=== PATIENT | female | born 1990 | race African-American/Black ===

== ENCOUNTER 2016-07-02 23:35 | Inpatient (IN) | payer MEDICARE, MEDICAID ==
[~2016-07-02] VITALS: Ht 180.3 cm; Wt 110.9 kg
[~2016-07-02 23:35] MED LIST: DOCU250C91 PO; PALI234D IM; PALI6 PO; SERT50TA12 PO; TRAZ-147 PO
[2016-07-03] MEDS ORDERED: HYD50 PO (00:08)
[2016-07-03] MEDS ORDERED: FAMO20 PO (00:08)
[2016-07-03] MEDS ORDERED: PROP20TA7 PO (00:08)
[2016-07-03] MEDS ORDERED: VENL-67 PO (00:08)
[2016-07-03] MEDS ORDERED: HYDR25TA PO (00:08)
[2016-07-03 00:15] LABS: ANION GAP 11 mmol/L (8-16); CALCIUM, TOTAL 9.5 mg/dL (8.8-10.5); CARBON DIOXIDE 26 mmol/L (22-29); CHLORIDE 100 mmol/L (98-107); CREATININE 0.77 mg/dL (0.60-1.30); GLOMERULAR FILTR. RATE CALC > 60 mL/min (>60); POTASSIUM 3.5 mmol/L (3.5-5.1); SODIUM SERUM 137 mmol/L (136-145); UREA NITROGEN, BLOOD 11 mg/dL (7-18)
[2016-07-03 00:20] LABS: ALANINE AMINOTRANSFERASE 17 U/L (12-78); ALBUMIN 3.4 g/dL (3.4-5.0); ASPARTATE AMINOTRANSFERASE 12 U/L (15-37); BILIRUBIN,TOTAL 0.3 mg/dL (0.1-1.0); TOTAL PROTEIN, SERUM 7.9 g/dL (6.4-8.2)
[2016-07-03 00:30] LABS: BASOPHILS # (AUTO) 0.12 K/uL (0.00-0.20); BASOPHILS % (AUTO) 1.1 % (0.0-2.0); EOSINOPHILS # (AUTO) 0.12 K/uL (0.00-0.70); EOSINOPHILS % (AUTO) 1.03 % (1.0-6.0); HEMATOCRIT 39.6 % (36-46); HEMOGLOBIN 13.3 g/dL (12.0-16.0); LYMPHOCYTES # (AUTO) 3.5 K/uL (1.0-4.8); LYMPHOCYTES % (AUTO) 31.3 % (22.0-44.0); MEAN CORPUSCULAR HEMOGLOBIN 27.7 pg (26.0-34.0); MEAN CORPUSCULAR HGB CONC 33.6 G/dL (31.0-37.0); MEAN CORPUSCULAR VOLUME 83 fL (80-100); MONOCYTES # (AUTO) 1.3 K/uL (0.1-1.0); MONOCYTES % (AUTO) 11.1 % (2.0-9.0); NEUTROPHILS # (AUTO) 6.3 K/uL (1.8-7.7); NEUTROPHILS % (AUTO) 55.5 % (40.0-70.0); PLATELET COUNT (AUTO) 293 K/uL (150-450); RED BLOOD CELL COUNT(AUTO) 4.79 MIL/uL (4.00-5.20); RED CELL DISTRIBUTION WIDTH 13.8 % (11.5-14.5); WHITE BLOOD COUNT (AUTO) 11.3 K/uL (4.5-11.0)
[2016-07-03] MEDS ORDERED: LORazepam 2 MG TABLET PO ONE (00:30)
[2016-07-03] MEDS ORDERED: QUEtiapine FUMARATE 100 MG TABLET PO ONE (00:30)
[2016-07-03 01:45] VITALS: BP 126/67
[2016-07-03] MEDS ORDERED: INFLUENZA VIRUS VACCINE QVS 2016-17 (3YR+)/PF 60 MCG/0.5 ML SYRINGE IM ONE (03:00)
[2016-07-03] MEDS ORDERED: BACITRACIN 28.4 GM OINTMENT TP PRN (09:45)
[2016-07-03] MEDS ORDERED: CloNIDine HCL 0.1 MG TABLET PO PRN (09:45)
[2016-07-03] MEDS ORDERED: MAGNESIUM HYDROXIDE SUSPENSION 30 ML UDCUP PO PRN (09:45)
[2016-07-03] MEDS ORDERED: LOPERAMIDE HCL 2 MG CAPSULE PO PRN (09:45)
[2016-07-03] MEDS ORDERED: BENZOCAINE/MENTHOL LOZENGE [8 LOZENGES/PACKET] MM PRN (09:45)
[2016-07-03] MEDS ORDERED: PETROLATUM,WHITE 71 GM JELLY TP PRN (09:45)
[2016-07-03] MEDS ORDERED: MAG HYDROX/AL HYDROX/SIMETH ES 30 ML SUSPENSION UDCUP PO PRN (09:45)
[2016-07-03] MEDS ORDERED: ALBUTEROL SULFATE HFA 90 MCG/PUFF 8 GM INHALER IH PRN (09:45)
[2016-07-03] MEDS ORDERED: ACETAMINOPHEN 325 MG TABLET PO PRN (09:45)
[2016-07-03] MEDS: SERTRALINE HCL 50 MG TABLET PO SCH (12:32)
[2016-07-03] MEDS: LORazepam 2 MG TABLET PO PRN (15:23)
[2016-07-03] MEDS: QUEtiapine FUMARATE 100 MG TABLET PO PRN (17:41)
[2016-07-03] MEDS: TraZODone HCL 100 MG TABLET PO SCH (20:22)
[2016-07-04 05:03] VITALS: BP 130/85
[2016-07-04 08:05] VITALS: BP 142/95
[2016-07-04] MEDS: SERTRALINE HCL 50 MG TABLET PO SCH (09:06)
[2016-07-04] MEDS: PALIPERIDONE PALMITATE 234 MG/1.5 ML SYRINGE IM SCH (09:11)
[2016-07-04 17:22] VITALS: BP 126/89
[2016-07-04] MEDS: LORazepam 2 MG TABLET PO PRN (18:27)
[2016-07-04] MEDS: TraZODone HCL 100 MG TABLET PO SCH (20:16)
[2016-07-05 08:00] VITALS: BP 129/93
[2016-07-05] MEDS: SERTRALINE HCL 50 MG TABLET PO SCH (08:51)
[2016-07-05 16:59] VITALS: BP 126/95
[2016-07-05] MEDS: TraZODone HCL 100 MG TABLET PO SCH (20:26)
[2016-07-06 06:20] VITALS: BP 128/83
[2016-07-06] MEDS: QUEtiapine FUMARATE 100 MG TABLET PO PRN (06:24)
[2016-07-06] MEDS: SERTRALINE HCL 50 MG TABLET PO SCH (08:19)
[2016-07-06 09:03] VITALS: BP 121/88
[2016-07-06 17:05] VITALS: BP 126/74
[2016-07-06] MEDS: TraZODone HCL 100 MG TABLET PO SCH (20:56)
[2016-07-07 08:00] VITALS: BP 130/90
[2016-07-07] MEDS: SERTRALINE HCL 50 MG TABLET PO SCH (08:38)
[2016-07-07 16:23] VITALS: BP 120/71
[2016-07-07] MEDS: TraZODone HCL 150 MG TABLET PO SCH (20:29)
[2016-07-08 02:07] VITALS: BP 135/92
[2016-07-08] MEDS: QUEtiapine FUMARATE 100 MG TABLET PO PRN (02:12)
[2016-07-08] MEDS: LORazepam 2 MG TABLET PO PRN (02:12)
[2016-07-08 08:00] VITALS: BP 107/64
[2016-07-08] MEDS: SERTRALINE HCL 50 MG TABLET PO SCH (08:26)
[2016-07-08 16:30] VITALS: BP 132/90
[2016-07-08] MEDS: TraZODone HCL 150 MG TABLET PO SCH (20:50)
[2016-07-09] MEDS: SERTRALINE HCL 50 MG TABLET PO SCH (08:04)
[2016-07-09 08:35] VITALS: BP 116/67
[2016-07-09 17:11] VITALS: BP 123/73
[2016-07-09] MEDS: TraZODone HCL 150 MG TABLET PO SCH (20:07)
[2016-07-10] MEDS: SERTRALINE HCL 50 MG TABLET PO SCH (08:27)
[2016-07-10 09:53] VITALS: BP 137/90
[2016-07-10 16:00] VITALS: BP 146/96
[2016-07-10] MEDS: TraZODone HCL 150 MG TABLET PO SCH (20:49)
[2016-07-11 04:15] VITALS: BP 121/71
[2016-07-11] MEDS: QUEtiapine FUMARATE 100 MG TABLET PO PRN (04:16)
[2016-07-11 08:00] VITALS: BP 103/57
[2016-07-11] MEDS: SERTRALINE HCL 50 MG TABLET PO SCH (08:31)
[2016-07-11 16:23] VITALS: BP 124/78
[2016-07-11] MEDS: TraZODone HCL 150 MG TABLET PO SCH (20:11)
[2016-07-12 06:35] VITALS: BP 118/78
[2016-07-12 08:00] VITALS: BP 121/91
[2016-07-12] MEDS: SERTRALINE HCL 50 MG TABLET PO SCH (08:40)
[2016-07-12 16:24] VITALS: BP 130/78
[2016-07-12] MEDS: TraZODone HCL 150 MG TABLET PO SCH (20:26)
[2016-07-13] MEDS: QUEtiapine FUMARATE 100 MG TABLET PO PRN (03:26)
[2016-07-13] MEDS: LORazepam 2 MG TABLET PO PRN (03:26)
[2016-07-13 03:30] VITALS: BP 121/93
[2016-07-13] MEDS: SERTRALINE HCL 50 MG TABLET PO SCH (08:48)
[2016-07-13 10:48] VITALS: BP 103/64
[2016-07-13 17:19] VITALS: BP 132/95
[2016-07-13] MEDS: TraZODone HCL 150 MG TABLET PO SCH (20:28)
[2016-07-14 08:00] VITALS: BP 122/68
[2016-07-14] MEDS: SERTRALINE HCL 50 MG TABLET PO SCH (08:20)
[2016-07-14] MEDS: LORazepam 2 MG TABLET PO PRN (16:14)
[2016-07-14 18:38] VITALS: BP 117/81
[2016-07-14] MEDS: TraZODone HCL 150 MG TABLET PO SCH (20:50)
[2016-07-15 08:00] VITALS: BP 104/68
[2016-07-15] MEDS: SERTRALINE HCL 50 MG TABLET PO SCH (08:51)
[2016-07-15 13:46] VITALS: BP 124/84
[2016-07-15] MEDS: IBUPROFEN 600 MG TABLET PO PRN (13:46)
[2016-07-15 17:08] VITALS: BP 129/76
[2016-07-15] MEDS: TraZODone HCL 100 MG TABLET PO SCH (20:38)
[2016-07-16] MEDS: LORazepam 2 MG TABLET PO PRN (02:36)
[2016-07-16] MEDS: QUEtiapine FUMARATE 100 MG TABLET PO PRN (02:36)
[2016-07-16 04:58] VITALS: BP 118/79
[2016-07-16] MEDS: SERTRALINE HCL 50 MG TABLET PO SCH (08:48)
[2016-07-16 09:55] VITALS: BP 127/82
[2016-07-16 16:41] VITALS: BP 115/82
[2016-07-16] MEDS: TraZODone HCL 100 MG TABLET PO SCH (20:25)
[2016-07-17] MEDS: SERTRALINE HCL 50 MG TABLET PO SCH (08:58)
[2016-07-17 09:00] VITALS: BP 163/91
[2016-07-17] MEDS: LORazepam 2 MG TABLET PO PRN (12:28)
[2016-07-17 16:04] VITALS: BP 120/88
[2016-07-17] MEDS: TraZODone HCL 100 MG TABLET PO SCH (20:16)
[2016-07-18 08:00] VITALS: BP 102/60
[2016-07-18] MEDS: SERTRALINE HCL 50 MG TABLET PO SCH (08:27)
[2016-07-18 17:00] VITALS: BP 138/95
[2016-07-18] MEDS: TraZODone HCL 100 MG TABLET PO SCH (21:08)
[2016-07-19] MEDS: QUEtiapine FUMARATE 100 MG TABLET PO PRN (04:20)
[2016-07-19 04:22] VITALS: BP 117/88
[2016-07-19 08:00] VITALS: BP 107/66
[2016-07-19] MEDS: SERTRALINE HCL 50 MG TABLET PO SCH (08:13)
[2016-07-19] MEDS ORDERED: TUBERCULIN, PURIFIED PROTEIN DERIVATIVE 5 TU/0.1 ML SYG ID ONE (11:00)
[2016-07-19 17:01] VITALS: BP 120/86
[2016-07-19] MEDS: TraZODone HCL 100 MG TABLET PO SCH (20:06)
[2016-07-20] MEDS: LORazepam 2 MG TABLET PO PRN (04:12)
[2016-07-20] MEDS: QUEtiapine FUMARATE 100 MG TABLET PO PRN (04:12)
[2016-07-20 04:26] VITALS: BP 142/71
[2016-07-20 08:00] VITALS: BP 101/57
[2016-07-20] MEDS: SERTRALINE HCL 50 MG TABLET PO SCH (08:11)
[2016-07-20 16:28] VITALS: BP 119/51
[2016-07-20] MEDS: TraZODone HCL 100 MG TABLET PO SCH (20:28)
[2016-07-21] MEDS: SERTRALINE HCL 50 MG TABLET PO SCH (08:06)
[2016-07-21 08:37] VITALS: BP 128/76
[2016-07-21 16:34] VITALS: BP 125/86
[2016-07-21] MEDS: TraZODone HCL 100 MG TABLET PO SCH (20:29)
[2016-07-22] MEDS: SERTRALINE HCL 50 MG TABLET PO SCH (08:43)
[2016-07-22 10:14] VITALS: BP 129/96
[2016-07-22 18:00] VITALS: BP 133/88
[2016-07-22] MEDS: TraZODone HCL 100 MG TABLET PO SCH (21:56)
[2016-07-22] MEDS: ZOLPIDEM TARTRATE 10 MG TABLET PO PRN (21:59)
[2016-07-23 08:00] VITALS: BP 100/62
[2016-07-23] MEDS: SERTRALINE HCL 50 MG TABLET PO SCH (12:00)
[2016-07-23 16:42] VITALS: BP 126/68
[2016-07-23] MEDS: TraZODone HCL 100 MG TABLET PO SCH (20:14)
[2016-07-24 08:30] VITALS: BP 128/75
[2016-07-24] MEDS: SERTRALINE HCL 50 MG TABLET PO SCH (08:37)
[2016-07-24 16:57] VITALS: BP 122/66
[2016-07-24] MEDS: TraZODone HCL 100 MG TABLET PO SCH (20:47)
[2016-07-25] MEDS: SERTRALINE HCL 50 MG TABLET PO SCH (08:17)
[2016-07-25 09:13] VITALS: BP 116/62
[2016-07-25] MEDS: LORazepam 2 MG TABLET PO PRN (14:09)
[2016-07-25 16:11] VITALS: BP 128/83
[2016-07-25] MEDS: TraZODone HCL 100 MG TABLET PO SCH (20:24)
[2016-07-26 08:00] VITALS: BP 128/81
[2016-07-26] MEDS: SERTRALINE HCL 50 MG TABLET PO SCH (08:22)
[2016-07-26 16:39] VITALS: BP 150/74
[2016-07-26] MEDS: TraZODone HCL 100 MG TABLET PO SCH (20:16)
[2016-07-27 03:05] VITALS: BP 115/91
[2016-07-27] MEDS: ZOLPIDEM TARTRATE 10 MG TABLET PO PRN ×2 (03:13→20:05)
[2016-07-27 08:00] VITALS: BP 113/68
[2016-07-27] MEDS: SERTRALINE HCL 50 MG TABLET PO SCH (08:18)
[2016-07-27 18:47] VITALS: BP 122/74
[2016-07-27] MEDS: TraZODone HCL 100 MG TABLET PO SCH (20:05)
[2016-07-28 08:00] VITALS: BP 119/78
[2016-07-28] MEDS: SERTRALINE HCL 50 MG TABLET PO SCH (08:18)
[2016-07-28 16:40] VITALS: BP 136/72
[2016-07-28] MEDS: TraZODone HCL 100 MG TABLET PO SCH (20:18)
[2016-07-29] MEDS: SERTRALINE HCL 50 MG TABLET PO SCH (08:04)
[2016-07-29 09:32] VITALS: BP 107/58
[2016-07-29 16:41] VITALS: BP 140/85
[2016-07-29] MEDS: TraZODone HCL 100 MG TABLET PO SCH (20:10)
[2016-07-30 04:50] VITALS: BP 128/85
[2016-07-30] MEDS: LORazepam 2 MG TABLET PO PRN (04:55)
[2016-07-30 08:00] VITALS: BP 112/88
[2016-07-30] MEDS: SERTRALINE HCL 50 MG TABLET PO SCH (08:38)
[2016-07-30 16:21] VITALS: BP 122/88
[2016-07-30] MEDS: TraZODone HCL 100 MG TABLET PO SCH (20:07)
[2016-07-31 08:00] VITALS: BP 92/63
[2016-07-31] MEDS: SERTRALINE HCL 50 MG TABLET PO SCH (08:10)
[2016-07-31 16:37] VITALS: BP 111/75
[2016-07-31] MEDS: TraZODone HCL 100 MG TABLET PO SCH (20:27)
[2016-08-01 01:59] VITALS: BP 115/74
[2016-08-01] MEDS: ZOLPIDEM TARTRATE 10 MG TABLET PO PRN (02:04)
[2016-08-01 08:01] VITALS: BP 99/53
[2016-08-01] MEDS: SERTRALINE HCL 50 MG TABLET PO SCH (08:56)
[2016-08-01] MEDS: PALIPERIDONE PALMITATE 234 MG/1.5 ML SYRINGE IM SCH (09:26)
[2016-08-01 16:40] VITALS: BP 120/70
[2016-08-01] MEDS: TraZODone HCL 100 MG TABLET PO SCH (21:14)
[2016-08-02 08:00] VITALS: BP 138/80
[2016-08-02] MEDS: SERTRALINE HCL 50 MG TABLET PO SCH (08:11)
[2016-08-02] MEDS: LORazepam 2 MG TABLET PO PRN (13:24)
[2016-08-02 17:43] VITALS: BP 115/84
[2016-08-02] MEDS: TraZODone HCL 100 MG TABLET PO SCH (20:40)
[2016-08-03 08:00] VITALS: BP 110/67
[2016-08-03] MEDS: SERTRALINE HCL 50 MG TABLET PO SCH (08:12)
[2016-08-03 16:00] VITALS: BP 106/75
[2016-08-03] MEDS: TraZODone HCL 100 MG TABLET PO SCH (21:23)
[2016-08-04 08:00] VITALS: BP 136/71
[2016-08-04] MEDS: SERTRALINE HCL 50 MG TABLET PO SCH (08:18)
[2016-08-04 16:00] VITALS: BP 115/71
[2016-08-04] MEDS: TraZODone HCL 100 MG TABLET PO SCH (20:57)
[2016-08-05] MEDS: SERTRALINE HCL 50 MG TABLET PO SCH (08:05)
[2016-08-05 09:31] VITALS: BP 110/71
[2016-08-05] MEDS ORDERED: DiphenhydrAMINE HCL 50 MG/ML VIAL IM ONE (13:45)
[2016-08-05] MEDS ORDERED: LORazepam 2 MG/ML VIAL IM ONE (13:45)
[2016-08-05 16:53] VITALS: BP 118/76
[2016-08-05] MEDS: TraZODone HCL 100 MG TABLET PO SCH (20:25)
[2016-08-06 08:01] VITALS: BP 90/70
[2016-08-06] MEDS: SERTRALINE HCL 50 MG TABLET PO SCH (10:11)
[2016-08-06 17:00] VITALS: BP 160/97
[2016-08-06] MEDS: TraZODone HCL 100 MG TABLET PO SCH (20:40)
[2016-08-07] MEDS: SERTRALINE HCL 50 MG TABLET PO SCH (08:07)
[2016-08-07 10:06] VITALS: BP 118/59
[2016-08-07 16:36] VITALS: BP 122/94
[2016-08-07] MEDS: TraZODone HCL 100 MG TABLET PO SCH (20:37)
[2016-08-08] MEDS: SERTRALINE HCL 50 MG TABLET PO SCH (09:05)
[2016-08-08 10:17] VITALS: BP 117/70
[2016-08-08 17:09] VITALS: BP 142/90
[2016-08-08] MEDS: TraZODone HCL 100 MG TABLET PO SCH (20:02)
[2016-08-09 08:10] VITALS: BP 117/83
[2016-08-09] MEDS: SERTRALINE HCL 50 MG TABLET PO SCH (08:32)
[2016-08-09 16:32] VITALS: BP 124/84
[2016-08-09] MEDS: TraZODone HCL 100 MG TABLET PO SCH (20:22)
[2016-08-10 08:01] VITALS: BP 137/71
[2016-08-10] MEDS: SERTRALINE HCL 50 MG TABLET PO SCH (08:53)
[2016-08-10 17:02] VITALS: BP 142/91
[2016-08-10] MEDS: TraZODone HCL 100 MG TABLET PO SCH (20:30)
[2016-08-11] MEDS: SERTRALINE HCL 50 MG TABLET PO SCH (08:23)
[2016-08-11 08:56] VITALS: BP 126/74
[2016-08-11 18:12] VITALS: BP 129/76
[2016-08-11] MEDS: TraZODone HCL 100 MG TABLET PO SCH (20:36)
[2016-08-12 02:38] VITALS: BP 123/74
[2016-08-12] MEDS: ZOLPIDEM TARTRATE 10 MG TABLET PO PRN (02:38)
[2016-08-12] MEDS: SERTRALINE HCL 50 MG TABLET PO SCH (09:16)
[2016-08-12 11:16] VITALS: BP 110/66
[2016-08-12 18:00] VITALS: BP 121/90
[2016-08-12] MEDS: TraZODone HCL 100 MG TABLET PO SCH (20:30)
[2016-08-13] MEDS: SERTRALINE HCL 50 MG TABLET PO SCH (08:37)
[2016-08-13 10:03] VITALS: BP 99/61
[2016-08-13] MEDS: LORazepam 2 MG TABLET PO PRN (13:09)
[2016-08-13 16:26] VITALS: BP 131/78
[2016-08-13] MEDS: TraZODone HCL 100 MG TABLET PO SCH (20:17)
[2016-08-14 08:01] VITALS: BP 113/73
[2016-08-14] MEDS: SERTRALINE HCL 50 MG TABLET PO SCH (08:38)
[2016-08-14] MEDS ORDERED: LORazepam 2 MG/ML VIAL ONE (11:21)
[2016-08-14] MEDS ORDERED: HALOPERIDOL LACTATE 5 MG/ML VIAL ONE (11:22)
[2016-08-14] MEDS ORDERED: DiphenhydrAMINE HCL 50 MG/ML VIAL ONE (11:22)
[2016-08-14] MEDS ORDERED: LORazepam 2 MG/ML VIAL IM ONE (11:30)
[2016-08-14] MEDS ORDERED: FluPHENAZine HCL 2.5 MG/ML INJ IM ONE (11:30)
[2016-08-14] MEDS ORDERED: DiphenhydrAMINE HCL 50 MG/ML VIAL IM ONE (11:30)
[2016-08-14 16:39] VITALS: BP 116/65
[2016-08-14] MEDS: TraZODone HCL 100 MG TABLET PO SCH (20:09)
[2016-08-15 08:00] VITALS: BP 114/73
[2016-08-15] MEDS: SERTRALINE HCL 50 MG TABLET PO SCH (08:20)
[2016-08-15 17:00] VITALS: BP 123/73
[2016-08-15] MEDS: TraZODone HCL 100 MG TABLET PO SCH (20:41)
[2016-08-16] MEDS: SERTRALINE HCL 50 MG TABLET PO SCH (08:12)
[2016-08-16 08:14] VITALS: BP 119/76
[2016-08-16 16:18] VITALS: BP 125/78
[2016-08-16] MEDS: TraZODone HCL 100 MG TABLET PO SCH (20:09)
[2016-08-17] MEDS: SERTRALINE HCL 50 MG TABLET PO SCH (08:21)
[2016-08-17 08:27] VITALS: BP 131/91
[2016-08-17 16:09] VITALS: BP 119/66
[2016-08-17] MEDS: TraZODone HCL 100 MG TABLET PO SCH (20:30)
[2016-08-18 03:10] VITALS: BP 129/75
[2016-08-18] MEDS: LORazepam 2 MG TABLET PO PRN (03:16)
[2016-08-18 08:00] VITALS: BP 116/75
[2016-08-18 08:26] VITALS: BP 116/75
[2016-08-18] MEDS: SERTRALINE HCL 50 MG TABLET PO SCH (09:13)
[2016-08-18 16:09] VITALS: BP 129/86
[2016-08-18] MEDS: TraZODone HCL 100 MG TABLET PO SCH (20:18)
[2016-08-19 00:40] VITALS: BP 126/77
[2016-08-19] MEDS: ZOLPIDEM TARTRATE 10 MG TABLET PO PRN (00:46)
[2016-08-19 08:34] VITALS: BP 142/86
[2016-08-19] MEDS: SERTRALINE HCL 50 MG TABLET PO SCH (09:04)
[2016-08-19 16:43] VITALS: BP 138/84
[2016-08-19] MEDS: TraZODone HCL 100 MG TABLET PO SCH (20:24)
[2016-08-20] MEDS: ZOLPIDEM TARTRATE 10 MG TABLET PO PRN (01:42)
[2016-08-20 03:47] VITALS: BP 128/90
[2016-08-20] MEDS: SERTRALINE HCL 50 MG TABLET PO SCH (08:03)
[2016-08-20 08:28] VITALS: BP 122/54
[2016-08-20 16:00] VITALS: BP 128/80
[2016-08-20] MEDS: TraZODone HCL 100 MG TABLET PO SCH (20:21)
[2016-08-21 08:00] VITALS: BP 106/66
[2016-08-21] MEDS: SERTRALINE HCL 50 MG TABLET PO SCH (08:54)
[2016-08-21 17:17] VITALS: BP 130/70
[2016-08-21] MEDS: TraZODone HCL 100 MG TABLET PO SCH (20:43)
[2016-08-22] MEDS: SERTRALINE HCL 50 MG TABLET PO SCH (08:11)
[2016-08-22 08:16] VITALS: BP 114/69
[2016-08-22 16:07] VITALS: BP 131/85
[2016-08-22] MEDS: TraZODone HCL 100 MG TABLET PO SCH (20:19)
[2016-08-23 08:09] VITALS: BP 103/68
[2016-08-23] MEDS: SERTRALINE HCL 50 MG TABLET PO SCH (08:11)
[2016-08-23 16:17] VITALS: BP 126/84
[2016-08-23] MEDS: TraZODone HCL 100 MG TABLET PO SCH (20:24)
[2016-08-24] MEDS: SERTRALINE HCL 50 MG TABLET PO SCH (08:04)
[2016-08-24 08:31] VITALS: BP 128/83
[2016-08-24 18:56] VITALS: BP 118/86
[2016-08-24] MEDS: TraZODone HCL 100 MG TABLET PO SCH (21:10)
[2016-08-25 08:00] VITALS: BP 100/63
[2016-08-25] MEDS: SERTRALINE HCL 50 MG TABLET PO SCH (08:03)
[2016-08-25 16:05] VITALS: BP 136/87
[2016-08-25] MEDS: TraZODone HCL 100 MG TABLET PO SCH (20:23)
[2016-08-26 08:30] VITALS: BP 107/60
[2016-08-26] MEDS: SERTRALINE HCL 50 MG TABLET PO SCH (08:32)
[2016-08-26] MEDS: LORazepam 2 MG TABLET PO PRN (12:35)
[2016-08-26 16:47] VITALS: BP 117/78
[2016-08-26] MEDS: TraZODone HCL 100 MG TABLET PO SCH (20:51)
[2016-08-27 08:30] VITALS: BP 90/48
[2016-08-27] MEDS: SERTRALINE HCL 50 MG TABLET PO SCH (09:48)
[2016-08-27 16:27] VITALS: BP 124/78
[2016-08-27] MEDS: TraZODone HCL 100 MG TABLET PO SCH (20:39)
[2016-08-28 08:07] VITALS: BP 111/79
[2016-08-28] MEDS: SERTRALINE HCL 50 MG TABLET PO SCH (09:16)
[2016-08-28] MEDS: LORazepam 2 MG TABLET PO PRN (13:10)
[2016-08-28 17:11] VITALS: BP 124/80
[2016-08-28] MEDS: TraZODone HCL 100 MG TABLET PO SCH (20:26)
[2016-08-29 08:00] VITALS: BP 120/85
[2016-08-29] MEDS: SERTRALINE HCL 50 MG TABLET PO SCH (09:43)
[2016-08-29] MEDS: PALIPERIDONE PALMITATE 234 MG/1.5 ML SYRINGE IM SCH (11:13)
[2016-08-29 16:15] VITALS: BP 131/74
[2016-08-29] MEDS: TraZODone HCL 100 MG TABLET PO SCH (20:11)
[2016-08-30] MEDS: ZOLPIDEM TARTRATE 10 MG TABLET PO PRN (02:13)
[2016-08-30 02:20] VITALS: BP 144/75
[2016-08-30 08:05] VITALS: BP 129/98
[2016-08-30] MEDS: SERTRALINE HCL 50 MG TABLET PO SCH (08:30)
[2016-08-30] MEDS: LORazepam 2 MG TABLET PO PRN (18:30)
[2016-08-30 19:41] VITALS: BP 132/89
[2016-08-30] MEDS: TraZODone HCL 100 MG TABLET PO SCH (21:16)
[2016-08-31] MEDS: SERTRALINE HCL 50 MG TABLET PO SCH (08:04)
[2016-08-31 14:31] VITALS: BP 128/74
[2016-08-31 16:42] VITALS: BP 138/84
[2016-08-31] MEDS: TraZODone HCL 100 MG TABLET PO SCH (20:15)
[2016-09-01] MEDS: SERTRALINE HCL 50 MG TABLET PO SCH (08:41)
[2016-09-01 09:02] VITALS: BP 115/78
[2016-09-01 09:05] VITALS: BP 115/78
[2016-09-01 16:02] VITALS: BP 121/79
[2016-09-01] MEDS: TraZODone HCL 100 MG TABLET PO SCH (20:09)
[2016-09-02 04:36] VITALS: BP 136/74
[2016-09-02] MEDS: LORazepam 2 MG TABLET PO PRN (04:36)
[2016-09-02] MEDS: SERTRALINE HCL 50 MG TABLET PO SCH (08:36)
[2016-09-02 09:13] VITALS: BP 132/89
[2016-09-02 16:15] VITALS: BP 132/89
[2016-09-02] MEDS: TraZODone HCL 100 MG TABLET PO SCH (20:15)
[2016-09-03] MEDS: SERTRALINE HCL 50 MG TABLET PO SCH (08:03)
[2016-09-03 10:36] VITALS: BP 126/56
[2016-09-03] MEDS ORDERED: LORazepam 2 MG/ML VIAL IM ONE (16:00)
[2016-09-03] MEDS ORDERED: DiphenhydrAMINE HCL 50 MG/ML VIAL IM ONE (16:00)
[2016-09-03 17:00] VITALS: BP 116/78
[2016-09-03 18:30] VITALS: BP 118/65
[2016-09-03] MEDS: TraZODone HCL 100 MG TABLET PO SCH (20:25)
[2016-09-04] MEDS: SERTRALINE HCL 50 MG TABLET PO SCH (08:51)
[2016-09-04 09:40] VITALS: BP 141/75
[2016-09-04 17:00] VITALS: BP 132/85
[2016-09-04] MEDS: TraZODone HCL 100 MG TABLET PO SCH (20:18)
[2016-09-05] MEDS: SERTRALINE HCL 50 MG TABLET PO SCH (08:12)
[2016-09-05 10:42] VITALS: BP 127/87
[2016-09-05 16:26] VITALS: BP 127/80
[2016-09-05] MEDS: TraZODone HCL 100 MG TABLET PO SCH (20:16)
[2016-09-06] MEDS: SERTRALINE HCL 50 MG TABLET PO SCH (07:42)
[2016-09-06 08:53] VITALS: BP 115/75
[2016-09-06 16:52] VITALS: BP 132/79
[2016-09-06] MEDS: TraZODone HCL 100 MG TABLET PO SCH (20:46)
[2016-09-07] MEDS: SERTRALINE HCL 50 MG TABLET PO SCH (08:46)
[2016-09-07 09:55] VITALS: BP 102/66
[2016-09-07 19:18] VITALS: BP 125/83
[2016-09-07] MEDS: TraZODone HCL 100 MG TABLET PO SCH (21:12)
[2016-09-08 08:02] VITALS: BP 113/77
[2016-09-08] MEDS: SERTRALINE HCL 50 MG TABLET PO SCH (09:52)
[2016-09-08] MEDS: LORazepam 2 MG TABLET PO PRN (11:24)
[2016-09-08 16:26] VITALS: BP 125/91
[2016-09-08] MEDS: TraZODone HCL 100 MG TABLET PO SCH (20:24)
[2016-09-09] MEDS: SERTRALINE HCL 50 MG TABLET PO SCH (08:22)
[2016-09-09 09:46] VITALS: BP 116/75
[2016-09-09 17:22] VITALS: BP 115/69
[2016-09-09] MEDS: TraZODone HCL 100 MG TABLET PO SCH (20:12)
[2016-09-10 08:02] VITALS: BP 134/82
[2016-09-10] MEDS: SERTRALINE HCL 50 MG TABLET PO SCH (08:21)
[2016-09-10] MEDS: LORazepam 2 MG TABLET PO PRN (16:04)
[2016-09-10 16:17] VITALS: BP 147/65
[2016-09-10] MEDS: TraZODone HCL 100 MG TABLET PO SCH (20:21)
[2016-09-11 08:02] VITALS: BP 116/75
[2016-09-11] MEDS: SERTRALINE HCL 50 MG TABLET PO SCH (08:07)
[2016-09-11 16:46] VITALS: BP 122/80
[2016-09-11] MEDS: TraZODone HCL 100 MG TABLET PO SCH (20:04)
[2016-09-12] MEDS: SERTRALINE HCL 50 MG TABLET PO SCH (09:51)
[2016-09-12 10:15] VITALS: BP 124/72
[2016-09-12 16:29] VITALS: BP 124/89
[2016-09-12] MEDS: TraZODone HCL 100 MG TABLET PO SCH (21:00)
[2016-09-13 02:20] VITALS: BP 132/87
[2016-09-13] MEDS: ZOLPIDEM TARTRATE 10 MG TABLET PO PRN (02:20)
[2016-09-13 08:05] VITALS: BP 98/61
[2016-09-13] MEDS: SERTRALINE HCL 50 MG TABLET PO SCH (08:42)
[2016-09-13 16:38] VITALS: BP 145/85
[2016-09-13] MEDS: TraZODone HCL 100 MG TABLET PO SCH (20:35)
[2016-09-14 01:40] VITALS: BP 116/78
[2016-09-14] MEDS: ZOLPIDEM TARTRATE 10 MG TABLET PO PRN (01:43)
[2016-09-14] MEDS: SERTRALINE HCL 50 MG TABLET PO SCH (08:21)
[2016-09-14 11:09] VITALS: BP 118/84
[2016-09-14] MEDS: TraZODone HCL 100 MG TABLET PO SCH (20:09)
[2016-09-14 22:20] VITALS: BP 125/89
[2016-09-15] MEDS: ZOLPIDEM TARTRATE 10 MG TABLET PO PRN (00:36)
[2016-09-15 08:30] VITALS: BP 118/93
[2016-09-15] MEDS: SERTRALINE HCL 50 MG TABLET PO SCH (08:31)
[2016-09-15 17:00] VITALS: BP 103/57
[2016-09-15] MEDS: TraZODone HCL 100 MG TABLET PO SCH (21:01)
[2016-09-16] MEDS: SERTRALINE HCL 50 MG TABLET PO SCH (08:40)
[2016-09-16 10:50] VITALS: BP 104/76
[2016-09-16 16:45] VITALS: BP 132/80
[2016-09-16] MEDS: TraZODone HCL 100 MG TABLET PO SCH (20:30)
[2016-09-17 11:10] VITALS: BP 120/84
[2016-09-17] MEDS: SERTRALINE HCL 50 MG TABLET PO SCH (11:10)
[2016-09-17] MEDS: IBUPROFEN 600 MG TABLET PO PRN (11:11)
[2016-09-17 17:18] VITALS: BP 139/88
[2016-09-17] MEDS: TraZODone HCL 100 MG TABLET PO SCH (20:54)
[2016-09-18 08:00] VITALS: BP 124/98
[2016-09-18] MEDS: SERTRALINE HCL 50 MG TABLET PO SCH (09:23)
[2016-09-18] MEDS: TraZODone HCL 100 MG TABLET PO SCH (20:46)
[2016-09-18 21:23] VITALS: BP 126/86
[2016-09-19 02:45] VITALS: BP 114/76
[2016-09-19] MEDS: ZOLPIDEM TARTRATE 10 MG TABLET PO PRN (03:05)
[2016-09-19 08:08] VITALS: BP 145/89
[2016-09-19] MEDS: SERTRALINE HCL 50 MG TABLET PO SCH (09:39)
[2016-09-19 16:04] VITALS: BP 128/84
[2016-09-19] MEDS: TraZODone HCL 100 MG TABLET PO SCH (20:25)
[2016-09-20 08:00] VITALS: BP 113/69
[2016-09-20] MEDS: SERTRALINE HCL 50 MG TABLET PO SCH (08:28)
[2016-09-20 16:03] VITALS: BP 129/79
[2016-09-20] MEDS: TraZODone HCL 100 MG TABLET PO SCH (20:22)
[2016-09-21 08:08] VITALS: BP 139/87
[2016-09-21] MEDS: SERTRALINE HCL 50 MG TABLET PO SCH (08:14)
[2016-09-21] MEDS: IBUPROFEN 600 MG TABLET PO PRN (08:17)
[2016-09-21 16:38] VITALS: BP 146/96
[2016-09-21] MEDS: TraZODone HCL 100 MG TABLET PO SCH (20:06)
[2016-09-22 07:32] LABS: ALANINE AMINOTRANSFERASE 16 U/L (12-78); ANION GAP 7 mmol/L (8-16); ASPARTATE AMINOTRANSFERASE 9 U/L (15-37); BILIRUBIN,TOTAL 0.3 mg/dL (0.1-1.0); CALCIUM, TOTAL 8.6 mg/dL (8.8-10.5); CARBON DIOXIDE 26 mmol/L (22-29); CHLORIDE 108 mmol/L (98-107); CREATININE 0.72 mg/dL (0.60-1.30); GLOMERULAR FILTR. RATE CALC > 60 mL/min (>60); PHOSPHORUS 3.7 mg/dL (2.5-4.9); POTASSIUM 4.1 mmol/L (3.5-5.1); SODIUM SERUM 141 mmol/L (136-145); TOTAL PROTEIN, SERUM 6.5 g/dL (6.4-8.2); UREA NITROGEN, BLOOD 13 mg/dL (7-18)
[2016-09-22 07:59] LABS: BASOPHILS % (AUTO) 0.3 % (0.0-2.0); EOSINOPHILS % (AUTO) 1.1 % (1.0-6.0); HEMATOCRIT 36.3 % (36-46); HEMOGLOBIN 11.9 g/dL (12.0-16.0); LYMPHOCYTES # (AUTO) 2.7 K/uL (1.0-4.8); MEAN CORPUSCULAR HGB CONC 32.7 G/dL (31.0-37.0); MEAN CORPUSCULAR VOLUME 86 fL (80-100); MONOCYTES # (AUTO) 0.9 K/uL (0.1-1.0); MONOCYTES % (AUTO) 10.5 % (2.0-9.0); NEUTROPHILS % (AUTO) 57.1 % (40.0-70.0); PLATELET COUNT (AUTO) 238 K/uL (150-450); RED BLOOD CELL COUNT(AUTO) 4.24 MIL/uL (4.00-5.20); RED CELL DISTRIBUTION WIDTH 13.6 % (11.5-14.5); WHITE BLOOD COUNT (AUTO) 8.8 K/uL (4.5-11.0)
[2016-09-22 08:00] VITALS: BP 136/94
[2016-09-22] MEDS: SERTRALINE HCL 50 MG TABLET PO SCH (08:38)
[2016-09-22 16:41] VITALS: BP 116/80
[2016-09-22] MEDS: TraZODone HCL 100 MG TABLET PO SCH (20:09)
[2016-09-23] MEDS: SERTRALINE HCL 50 MG TABLET PO SCH (08:14)
[2016-09-23 08:23] VITALS: BP 107/75
[2016-09-23 16:33] VITALS: BP 115/78
[2016-09-23] MEDS: TraZODone HCL 100 MG TABLET PO SCH (21:00)
[2016-09-24 08:00] VITALS: BP 112/85
[2016-09-24] MEDS: SERTRALINE HCL 50 MG TABLET PO SCH (08:36)
[2016-09-24 16:58] VITALS: BP 145/69
[2016-09-24] MEDS: TraZODone HCL 100 MG TABLET PO SCH (20:10)
[2016-09-25] MEDS: SERTRALINE HCL 50 MG TABLET PO SCH (08:16)
[2016-09-25 09:15] VITALS: BP 119/77
[2016-09-25 16:54] VITALS: BP 123/78
[2016-09-25] MEDS: TraZODone HCL 100 MG TABLET PO SCH (20:19)
[2016-09-26] MEDS: PALIPERIDONE PALMITATE 234 MG/1.5 ML SYRINGE IM SCH (08:37)
[2016-09-26] MEDS: SERTRALINE HCL 50 MG TABLET PO SCH (08:37)
[2016-09-26 10:05] VITALS: BP 116/68
[2016-09-26 17:06] VITALS: BP 134/86
[2016-09-26] MEDS: TraZODone HCL 100 MG TABLET PO SCH (20:15)
[2016-09-27] MEDS: SERTRALINE HCL 50 MG TABLET PO SCH (08:15)
[2016-09-27 09:43] VITALS: BP 125/58
[2016-09-27 16:16] VITALS: BP 143/69
[2016-09-27] MEDS: TraZODone HCL 100 MG TABLET PO SCH (20:19)
[2016-09-28] MEDS: SERTRALINE HCL 50 MG TABLET PO SCH (08:11)
[2016-09-28 10:09] VITALS: BP 124/74
[2016-09-28 17:05] VITALS: BP 128/80
[2016-09-28] MEDS: TraZODone HCL 100 MG TABLET PO SCH (20:14)
[2016-09-29 08:00] VITALS: BP 130/86
[2016-09-29] MEDS: SERTRALINE HCL 50 MG TABLET PO SCH (08:12)
[2016-09-29 19:17] VITALS: BP 123/77
[2016-09-29] MEDS: TraZODone HCL 100 MG TABLET PO SCH (20:19)
[2016-09-30] MEDS: SERTRALINE HCL 50 MG TABLET PO SCH (08:45)
[2016-09-30 09:13] VITALS: BP 121/72
[2016-09-30 16:42] VITALS: BP 126/72
[2016-09-30] MEDS: TraZODone HCL 100 MG TABLET PO SCH (20:24)
[2016-10-01 08:00] VITALS: BP 117/80
[2016-10-01] MEDS: SERTRALINE HCL 50 MG TABLET PO SCH (08:26)
[2016-10-01 16:16] VITALS: BP 117/79
[2016-10-01] MEDS: TraZODone HCL 100 MG TABLET PO SCH (20:30)
[2016-10-02 08:00] VITALS: BP 133/66
[2016-10-02] MEDS: SERTRALINE HCL 50 MG TABLET PO SCH (08:25)
[2016-10-02 17:14] VITALS: BP 138/86
[2016-10-02] MEDS: TraZODone HCL 100 MG TABLET PO SCH (21:02)
[2016-10-03 08:01] VITALS: BP 117/73
[2016-10-03] MEDS: SERTRALINE HCL 50 MG TABLET PO SCH (08:40)
[2016-10-03 16:23] VITALS: BP 144/64
[2016-10-03] MEDS: TraZODone HCL 100 MG TABLET PO SCH (20:46)
[2016-10-04 08:00] VITALS: BP 130/85
[2016-10-04] MEDS: SERTRALINE HCL 50 MG TABLET PO SCH (09:14)
[2016-10-04 16:52] VITALS: BP 157/76
[2016-10-04 16:54] VITALS: BP 165/109
[2016-10-04] MEDS: TraZODone HCL 100 MG TABLET PO SCH (20:03)
[2016-10-05] MEDS: SERTRALINE HCL 50 MG TABLET PO SCH (10:05)
[2016-10-05 16:46] VITALS: BP 125/93
[2016-10-05] MEDS: TraZODone HCL 100 MG TABLET PO SCH (20:27)
[2016-10-06 08:00] VITALS: BP 125/82
[2016-10-06] MEDS: SERTRALINE HCL 50 MG TABLET PO SCH (08:34)
[2016-10-06] MEDS: LORazepam 2 MG TABLET PO PRN (09:54)
[2016-10-06 16:06] VITALS: BP 119/86
[2016-10-06] MEDS: TraZODone HCL 100 MG TABLET PO SCH (20:49)
[2016-10-07] MEDS: SERTRALINE HCL 50 MG TABLET PO SCH (07:50)
[2016-10-07 09:53] VITALS: BP 120/92
[2016-10-07 16:24] VITALS: BP 141/90
[2016-10-07] MEDS: TraZODone HCL 100 MG TABLET PO SCH (20:07)
[2016-10-08 08:00] VITALS: BP 110/71
[2016-10-08] MEDS: SERTRALINE HCL 50 MG TABLET PO SCH (08:17)
[2016-10-08 16:35] VITALS: BP 121/78
[2016-10-08] MEDS: TraZODone HCL 100 MG TABLET PO SCH (21:41)
[2016-10-09] MEDS: SERTRALINE HCL 50 MG TABLET PO SCH (08:21)
[2016-10-09 11:04] VITALS: BP 131/79
[2016-10-09 17:28] VITALS: BP 130/84
[2016-10-09] MEDS: TraZODone HCL 100 MG TABLET PO SCH (20:25)
[2016-10-10 02:45] VITALS: BP 116/76
[2016-10-10] MEDS: ZOLPIDEM TARTRATE 10 MG TABLET PO PRN (02:45)
[2016-10-10 08:20] VITALS: BP 144/92
[2016-10-10] MEDS: SERTRALINE HCL 50 MG TABLET PO SCH (08:56)
[2016-10-10 18:03] VITALS: BP 129/90
[2016-10-10] MEDS: TraZODone HCL 100 MG TABLET PO SCH (20:11)
[2016-10-10] MEDS: CARBAMIDE PEROXIDE 6.5% 15 ML OTIC SOLUTION AU SCH (20:12)
[2016-10-11 08:00] VITALS: BP 146/83
[2016-10-11] MEDS: SERTRALINE HCL 50 MG TABLET PO SCH (08:49)
[2016-10-11] MEDS: ONDANSETRON HCL 4 MG TABLET PO PRN (09:33)
[2016-10-11 18:38] VITALS: BP 108/62
[2016-10-11] MEDS: CARBAMIDE PEROXIDE 6.5% 15 ML OTIC SOLUTION AU SCH (20:39)
[2016-10-11] MEDS: TraZODone HCL 100 MG TABLET PO SCH (20:39)
[2016-10-12 08:00] VITALS: BP 110/70
[2016-10-12] MEDS: SERTRALINE HCL 50 MG TABLET PO SCH (08:27)
[2016-10-12 16:28] VITALS: BP 124/78
[2016-10-12] MEDS: TraZODone HCL 100 MG TABLET PO SCH (20:26)
[2016-10-12] MEDS: CARBAMIDE PEROXIDE 6.5% 15 ML OTIC SOLUTION AU SCH (20:26)
[2016-10-13 08:00] VITALS: BP 123/75
[2016-10-13] MEDS: SERTRALINE HCL 50 MG TABLET PO SCH (08:27)
[2016-10-13 16:45] VITALS: BP 120/80
[2016-10-13 20:01] VITALS: BP 124/75
[2016-10-13] MEDS: IBUPROFEN 600 MG TABLET PO PRN (20:03)
[2016-10-13] MEDS: CARBAMIDE PEROXIDE 6.5% 15 ML OTIC SOLUTION AU SCH (20:16)
[2016-10-13] MEDS: TraZODone HCL 100 MG TABLET PO SCH (20:16)
[2016-10-14] MEDS: SERTRALINE HCL 50 MG TABLET PO SCH (08:24)
[2016-10-14 10:44] VITALS: BP 145/92
[2016-10-14 16:13] VITALS: BP 133/89
[2016-10-14] MEDS: CARBAMIDE PEROXIDE 6.5% 15 ML OTIC SOLUTION AU SCH (20:10)
[2016-10-14] MEDS: TraZODone HCL 100 MG TABLET PO SCH (20:10)
[2016-10-15 08:43] VITALS: BP 133/75
[2016-10-15] MEDS: SERTRALINE HCL 50 MG TABLET PO SCH (09:24)
[2016-10-15] MEDS: CIPROFLOXACIN HCL 0.2%/HYDROCORT 1% 10 ML OTIC SUSPENSION AU SCH ×2 (11:27→20:15)
[2016-10-15 16:51] VITALS: BP 124/84
[2016-10-15] MEDS: TraZODone HCL 100 MG TABLET PO SCH (20:14)
[2016-10-16] MEDS: SERTRALINE HCL 50 MG TABLET PO SCH (08:44)
[2016-10-16] MEDS: CIPROFLOXACIN HCL 0.2%/HYDROCORT 1% 10 ML OTIC SUSPENSION AU SCH ×2 (08:45→20:29)
[2016-10-16] MEDS: ONDANSETRON HCL 4 MG TABLET PO PRN (10:25)
[2016-10-16] MEDS: IBUPROFEN 600 MG TABLET PO PRN (10:27)
[2016-10-16 10:30] VITALS: BP 121/75
[2016-10-16 16:49] VITALS: BP 112/68
[2016-10-16] MEDS: TraZODone HCL 100 MG TABLET PO SCH (20:28)
[2016-10-17 08:15] VITALS: BP 101/65
[2016-10-17] MEDS: SERTRALINE HCL 50 MG TABLET PO SCH (08:45)
[2016-10-17] MEDS: CIPROFLOXACIN HCL 0.2%/HYDROCORT 1% 10 ML OTIC SUSPENSION AU SCH ×2 (08:52→20:19)
[2016-10-17] MEDS ORDERED: TUBERCULIN, PURIFIED PROTEIN DERIVATIVE 5 TU/0.1 ML SYG ID ONE (14:45)
[2016-10-17 16:29] VITALS: BP 135/87
[2016-10-17] MEDS: TraZODone HCL 100 MG TABLET PO SCH (20:19)
[2016-10-18 08:00] VITALS: BP 137/99
[2016-10-18] MEDS: SERTRALINE HCL 50 MG TABLET PO SCH (08:06)
[2016-10-18] MEDS: CIPROFLOXACIN HCL 0.2%/HYDROCORT 1% 10 ML OTIC SUSPENSION AU SCH ×2 (08:10→21:19)
[2016-10-18 17:00] VITALS: BP 118/86
[2016-10-18] MEDS: TraZODone HCL 100 MG TABLET PO SCH (21:18)
[2016-10-19] MEDS: CIPROFLOXACIN HCL 0.2%/HYDROCORT 1% 10 ML OTIC SUSPENSION AU SCH ×2 (08:31→20:04)
[2016-10-19] MEDS: SERTRALINE HCL 50 MG TABLET PO SCH (08:31)
[2016-10-19 09:48] VITALS: BP 118/72
[2016-10-19 16:53] VITALS: BP 126/73
[2016-10-19] MEDS: TraZODone HCL 100 MG TABLET PO SCH (20:03)
[2016-10-20 08:00] VITALS: BP 114/60
[2016-10-20] MEDS: SERTRALINE HCL 50 MG TABLET PO SCH (08:13)
[2016-10-20] MEDS: CIPROFLOXACIN HCL 0.2%/HYDROCORT 1% 10 ML OTIC SUSPENSION AU SCH ×2 (08:13→20:29)
[2016-10-20] MEDS: TraZODone HCL 100 MG TABLET PO SCH (20:29)
[2016-10-20 22:46] VITALS: BP 114/76
[2016-10-21 08:09] VITALS: BP 122/85
[2016-10-21] MEDS: SERTRALINE HCL 50 MG TABLET PO SCH (08:36)
[2016-10-21] MEDS: CIPROFLOXACIN HCL 0.2%/HYDROCORT 1% 10 ML OTIC SUSPENSION AU SCH ×2 (08:36→20:12)
[2016-10-21 16:41] VITALS: BP 132/69
[2016-10-21] MEDS: TraZODone HCL 100 MG TABLET PO SCH (20:12)
[2016-10-22 08:00] VITALS: BP 111/60
[2016-10-22] MEDS: SERTRALINE HCL 50 MG TABLET PO SCH (08:27)
[2016-10-22] MEDS: CIPROFLOXACIN HCL 0.2%/HYDROCORT 1% 10 ML OTIC SUSPENSION AU SCH (08:29)
[2016-10-22 16:41] VITALS: BP 107/61
[2016-10-22] MEDS: TraZODone HCL 100 MG TABLET PO SCH (20:49)
[2016-10-23 03:25] VITALS: BP 129/80
[2016-10-23] MEDS: LORazepam 2 MG TABLET PO PRN (03:27)
[2016-10-23] MEDS: SERTRALINE HCL 50 MG TABLET PO SCH (08:39)
[2016-10-23 08:59] VITALS: BP 118/85
[2016-10-23 16:55] VITALS: BP 121/90
[2016-10-23] MEDS: TraZODone HCL 100 MG TABLET PO SCH (20:49)
[2016-10-24] MEDS: LORazepam 2 MG TABLET PO PRN (04:13)
[2016-10-24 04:14] VITALS: BP 118/88
[2016-10-24] MEDS: SERTRALINE HCL 50 MG TABLET PO SCH (08:10)
[2016-10-24] MEDS: PALIPERIDONE PALMITATE 234 MG/1.5 ML SYRINGE IM SCH (09:14)
[2016-10-24 09:40] VITALS: BP 120/70
[2016-10-24 16:20] VITALS: BP 144/87
[2016-10-24] MEDS: TraZODone HCL 100 MG TABLET PO SCH (20:11)
[2016-10-25 08:07] VITALS: BP 144/101
[2016-10-25] MEDS: SERTRALINE HCL 50 MG TABLET PO SCH (08:54)
[2016-10-25 16:57] VITALS: BP 121/80
[2016-10-25] MEDS: TraZODone HCL 100 MG TABLET PO SCH (20:34)
[2016-10-26 08:00] VITALS: BP 106/58
[2016-10-26] MEDS: SERTRALINE HCL 50 MG TABLET PO SCH (09:07)
[2016-10-26 16:51] VITALS: BP 139/88
[2016-10-26] MEDS: TraZODone HCL 100 MG TABLET PO SCH (20:30)
[2016-10-26 20:37] VITALS: BP 145/73
[2016-10-26] MEDS: IBUPROFEN 600 MG TABLET PO PRN (20:42)
[2016-10-27 08:00] VITALS: BP 145/95
[2016-10-27] MEDS: SERTRALINE HCL 50 MG TABLET PO SCH (08:38)
[2016-10-27 16:42] VITALS: BP 137/88
[2016-10-27] MEDS: TraZODone HCL 100 MG TABLET PO SCH (20:11)
[2016-10-28] MEDS: SERTRALINE HCL 50 MG TABLET PO SCH (08:10)
[2016-10-28 16:09] VITALS: BP 129/91
[2016-10-28] MEDS: TraZODone HCL 100 MG TABLET PO SCH (20:40)
[2016-10-29] MEDS: ZOLPIDEM TARTRATE 10 MG TABLET PO PRN (02:26)
[2016-10-29 08:20] VITALS: BP 110/64
[2016-10-29] MEDS: SERTRALINE HCL 50 MG TABLET PO SCH (08:32)
[2016-10-29] MEDS: LORazepam 2 MG TABLET PO PRN (15:51)
[2016-10-29 16:52] VITALS: BP 119/86
[2016-10-29] MEDS: TraZODone HCL 100 MG TABLET PO SCH (20:13)
[2016-10-30 08:05] VITALS: BP 114/73
[2016-10-30] MEDS: SERTRALINE HCL 50 MG TABLET PO SCH (08:24)
[2016-10-30 18:07] VITALS: BP 122/88
[2016-10-30] MEDS: TraZODone HCL 100 MG TABLET PO SCH (20:19)
[2016-10-31 02:55] VITALS: BP 129/96
[2016-10-31] MEDS: ZOLPIDEM TARTRATE 10 MG TABLET PO PRN (02:57)
[2016-10-31 08:05] VITALS: BP 134/97
[2016-10-31] MEDS: SERTRALINE HCL 50 MG TABLET PO SCH (08:27)
[2016-10-31 16:45] VITALS: BP 120/82
[2016-10-31] MEDS: TraZODone HCL 100 MG TABLET PO SCH (20:05)
[2016-11-01 02:55] VITALS: BP 116/72
[2016-11-01] MEDS: ZOLPIDEM TARTRATE 10 MG TABLET PO PRN (02:58)
[2016-11-01] MEDS: SERTRALINE HCL 50 MG TABLET PO SCH (08:28)
[2016-11-01 09:35] VITALS: BP 120/85
[2016-11-01 17:00] VITALS: BP 125/75
[2016-11-01] MEDS: TraZODone HCL 100 MG TABLET PO SCH (20:06)
[2016-11-02] MEDS: LORazepam 2 MG TABLET PO PRN (04:15)
[2016-11-02] MEDS: SERTRALINE HCL 50 MG TABLET PO SCH (09:14)
[2016-11-02 09:30] VITALS: BP 110/78
[2016-11-02 16:51] VITALS: BP 121/83
[2016-11-02] MEDS: TraZODone HCL 100 MG TABLET PO SCH (20:06)
[2016-11-03 08:00] VITALS: BP 135/78
[2016-11-03] MEDS: SERTRALINE HCL 50 MG TABLET PO SCH (08:16)
[2016-11-03 16:38] VITALS: BP 116/82
[2016-11-03] MEDS: TraZODone HCL 100 MG TABLET PO SCH (20:23)
[2016-11-04 03:22] VITALS: BP 103/59
[2016-11-04] MEDS: LORazepam 2 MG TABLET PO PRN (03:25)
[2016-11-04 08:30] VITALS: BP 135/82
[2016-11-04] MEDS: SERTRALINE HCL 50 MG TABLET PO SCH (08:58)
[2016-11-04 16:00] VITALS: BP 122/88
[2016-11-04] MEDS: IBUPROFEN 600 MG TABLET PO PRN (16:02)
[2016-11-04] MEDS: TraZODone HCL 100 MG TABLET PO SCH (20:16)
[2016-11-05 08:30] VITALS: BP 117/81
[2016-11-05] MEDS: SERTRALINE HCL 50 MG TABLET PO SCH (08:36)
[2016-11-05 18:56] VITALS: BP 128/89
[2016-11-05] MEDS: TraZODone HCL 100 MG TABLET PO SCH (22:13)
[2016-11-05] MEDS: LORazepam 2 MG TABLET PO PRN (23:21)
[2016-11-06] MEDS: ZOLPIDEM TARTRATE 10 MG TABLET PO PRN (02:27)
[2016-11-06 05:06] VITALS: BP 114/77
[2016-11-06] MEDS: SERTRALINE HCL 50 MG TABLET PO SCH (08:19)
[2016-11-06] MEDS ORDERED: TRAZ-147 PO (08:32)
[2016-11-06 09:09] VITALS: BP 139/89
== END 2016-11-06 13:37 | disposition home or self-care (01) | DRG 885 ==
LOC: EMS 23:36 → AHU 07-03 01:24 → 3EX 07-03 18:20
DX: F25.0 Schizoaffective disorder, bipolar type (principal); R45.851 Suicidal ideations; Z68.41 Body mass index [BMI] 40.0-44.9, adult; J45.909 Unspecified asthma, uncomplicated; K59.00 Constipation, unspecified; E66.9 Obesity, unspecified; R03.0 Elevated blood-pressure reading, without diagnosis of hypertension; R51 Headache; G47.00 Insomnia, unspecified; Z88.8 Allergy status to other drugs, medicaments and biological substances; Z91.14 Patient's other noncompliance with medication regimen; Z91.5 Personal history of self-harm; Z88.6 Allergy status to analgesic agent; Z79.899 Other long term (current) drug therapy; Z28.21 Immunization not carried out because of patient refusal; Z81.8 Family history of other mental and behavioral disorders
CPT/HCPCS: 83735; 84100; 87081; 99285; G0480; J1200; J1630; J2060; J3230; J3490; J3535; Q0162